=== PATIENT | female | born 1975 | race Caucasian/White ===

== ENCOUNTER 2017-11-14 14:18 | Inpatient (IN) | payer MEDICAID ==
[2017-11-14 15:36] LABS: BASO % 0.4 % (0.0-2.0); EOS # 0.2 K/uL (0.0-0.7); EOS % 1.6 % (0.0-4.0); HEMOGLOBIN 9.5 g/dL (12.0-16.0); LYMPH # 3.7 K/uL (1.0-4.3); LYMPH % 35.8 % (20.0-40.0); MEAN CELL VOLUME 64.9 fl (81.0-99.0); MEAN CORPUSCULAR HEMOGLOBIN 21.3 pg (27.0-31.0); MEAN CORPUSCULAR HGB CONC 32.8 g/dL (33.0-37.0); MEAN PLATELET VOLUME 9.5 fl (7.2-11.7); MONO # 0.7 K/uL (0.0-0.8); NEUT # 5.7 K/uL (1.8-7.0); NEUT % 55.2 % (50.0-75.0); RBC 4.45 Mil/uL (3.80-5.20); RED CELL DISTRIBUTION WIDTH 18.4 % (11.5-14.5); WHITE BLOOD COUNT 10.3 K/uL (4.8-10.8)
[2017-11-14 15:49] LABS: ALB/GLOB RATIO 1.1 (1.0-2.1); ALBUMIN 4.2 g/dL (3.5-5.0); ALT/SGPT 27 U/L (9-52); AST/SGOT 35 U/L (14-36); BLOOD UREA NITROGEN 12 mg/dl (7-17); CALCIUM 9.2 mg/dL (8.4-10.2); GFR NON-AFRICAN AMERICAN > 60
[2017-11-14 15:50] LABS: BARBITURATES, UR NEGATIVE (NEGATIVE); BENZODIAZEPINES, UR NEGATIVE (NEGATIVE); OPIATES, UR NEGATIVE (NEGATIVE); PHENCYCLIDINE, UR NEGATIVE (NEGATIVE)
[2017-11-14 15:52] VITALS: BMI 53.1
--- NOTE | 2017-11-14 15:55 | ED PDOC ---
HPI: Psych/Substance Abuse Time Seen by Provider: 11/14/17 15:52 Chief Complaint (Nursing): Psychiatric Evaluation Chief Complaint (Provider): psychiatric eval ED Caveat: Uncooperative History Per: Patient History/Exam Limitations: clinical condition Onset/Duration Of Symptoms: Unknown Current Symptoms Are (Timing): Still Present Severity: Moderate Associated Symptoms: Paranoia Additional Complaint(s): 42yo female arrives with EMS per report, wandering in rain, speaking nonsensical and then refusing to give name or further history. On my eval, she was more cooperative but remained unwilling to give much history. Admits to prior hospitalization for psychiatric reasons, shes unaware of formal diagnosis and denies taking medications. Denies drug or etoh use. Past Medical History Reviewed: Historical Data, Nursing Documentation, Vital Signs Vital Signs: Last Vital Signs Temp 98.4 F 11/14/17 15:48 Pulse 92 H 11/14/17 15:48 Resp 18 11/14/17 15:48 BP Pulse Ox 98 11/14/17 15:48 - Medical History PMH: Depression, Hypercholesterolemia, Migraine, Schizophrenia Denies: Diabetes, Hepatitis, HIV, HTN, Seizures, Sexually Transmitted Disease - Family History Family History: States: Unknown Family Hx - Home Medications Home Medications: Ambulatory Orders Medication Instructions Recorded Unobtainable 12/27/16 - Allergies Allergies/Adverse Reactions: Allergies Allergy/AdvReac Type Severity Reaction Status Date / Time No Known Allergies Allergy Verified 12/03/13 21:37 Review of Systems Review Of Systems: ROS cannot be obtained secondary to pt's inabilty to answer questions. Physical Exam - Reviewed Nursing Documentation Reviewed: Yes Vital Signs Reviewed: Yes - Physical Exam Appears: Positive for: Non-toxic Head Exam: Positive for: ATRAUMATIC, NORMAL INSPECTION, NORMOCEPHALIC Skin: Positive for: Normal Color, Warm, DRY Eye Exam: Positive for: EOMI, Normal appearance, PERRL ENT: Positive for: Normal ENT Inspection Neck: Positive for: Normal, Painless ROM Cardiovascular/Chest: Positive for: Regular Rate, Rhythm Respiratory: Positive for: CNT, Normal Breath Sounds Pulses-Radial (L): 3+/4+ Pulses-Radial (R): 3+/4+ Gastrointestinal/Abdominal: Positive for: Soft. Negative for: Tenderness Back: Positive for: Normal Inspection Extremity: Positive for: Normal ROM Neurologic/Psych: Positive for: Alert, Mood/Affect (poor insight, poor judgement). Negative for: Motor/Sensory Deficits - Laboratory Results Result Diagrams: 11/14/17 12:30 11/14/17 12:30 - ECG O2 Sat by Pulse Oximetry: 98 Medical Decision Making Medical Decision Making: labs performed on downtime under name Cassidy Chew (initially refused to give name), Utox, CMP, CBC clinically unremarkable Crisis eval- admit 3N for stabilization/ medically stable for 3N admission at this time. Disposition - Disposition
--- NOTE | 2017-11-14 16:13 | RAD ---
Date of service: 11/14/2017 HISTORY: medical clr COMPARISON: 12/03/2013. FINDINGS: LUNGS: The lungs are well inflated and clear. PLEURA: No significant pleural effusion identified, no pneumothorax apparent. CARDIOVASCULAR: Normal. OSSEOUS STRUCTURES: No significant abnormalities. VISUALIZED UPPER ABDOMEN: Normal. OTHER FINDINGS: None. IMPRESSION: No active pulmonary disease.
[2017-11-14] MEDS ORDERED: Magnesium Hydroxide Susp 30 ml UD PO PRN (23:31)
[2017-11-14] MEDS ORDERED: DiphenhydrAMINE 50 mg/ml Inj IM PRN (23:31)
[2017-11-14] MEDS ORDERED: Alum-Mag Hydrox-Simethicone Susp (30 mL) PO PRN (23:31)
--- NOTE | 2017-11-14 23:44 | PCM.BM ---
Treatment Plan Problems - Problems identified on initial assessmt Medication nonadherence Date Initiated: 11/14/17 Time Initiated: 23:43 Assessment reference: NA Status: Active Altered Thought Process Date Initiated: 11/14/17 Time Initiated: 23:44 Assessment reference: NA Status: Active Ineffective coping Date Initiated: 11/14/17 Time Initiated: :44 Date resolved: 11/14/17 Assessment reference: NA Status: Active Treatment assets and liabiliti Patient Assests: ADL independent, physically healthy, negotiates basic needs Patient Liabilities: relationship conflicts, other (poor insight) - Milieu Protocol Maintain good personal hygiene: every shift Encourage regular showers, every s hift Remind patient to perform daily oral care, every shift Assist patient to perform ADL's Conduct patient checks and document Observation sheet: Q15 minutes Maintain personal safety: every shift Educate patient to report safety concerns to staff, every shift Monitor environment for contraband/sharps Medication safety: Monitor for expected outcome, potential side effects: every shift, Assess barriers to learning: every shift, Assess readiness for medication education: every shift
[2017-11-15 04:18] VITALS: O2SAT 97
[2017-11-15 09:53] LABS: T4 6.78 ug/dl (5.5-11.0)
--- NOTE | 2017-11-15 10:33 | CARD ---
APPROVED REPORT Date of service: 11/14/2017 <Conclusion> Normal sinus rhythm Normal ECG
--- NOTE | 2017-11-15 15:23 | CP.PCM.CON ---
History of Present Illness - History of Present Illness History of Present Illness: 42 y/o female with PMH schizoaffective disorder with multiple psychiatric admissions in the past , not compliant with treatment and currently not on any medications admitted to psychiatric unit for management . Medicine consulted . History obtained from patient and chart. per patient she was walking outside in her neighborhood with no shoes on and the security door installer from the school decided to call EMS and she was brought to hospital for crisis eval. per patient she does not have any complaints , she was just trying to get some fresh air because sometimes she get short of breath. She denies any suicidal thoughts or ideation , visual or auditory hallucinations. She states that after her divorce she has been in and out of the psychiatric hospital for more than 4 years, after her mom would call the ambulance on her. She is feeling a little weak, denies any CP, gets SOB sometime while sleeping and wakes up scared . Denies any urinary sx, or changes in bowel movements, cough, fever , chills, nausea or vomiting. Denies any weight loss or gain Allergies ; NKDA PMH: Schizoaffective disorder not on any medications, dyslipidemia Medications; NOne Surgery ; NOne Family history: None Social history ; more than 10 years ago , has 3 children but does not have custody, lives with her mother in [place] , used to work in [employer] but has mot been working for 5 months, denies smoking , ETOH or drug abuse Code status; Full ROS ; 10 point review of system negative except above Review of Systems - Review of Systems All systems: reviewed and no additional remarkable complaints except Past Patient History - Infectious Disease Hx of Infectious Diseases: None - Tetanus Immunizations Tetanus Immunization: Unknown - Past Medical History & Family History Past Medical History?: Yes Past Family History: Reviewed and not pertinent - Past Social History Smoking Status: Light Smoker < 10 Cigarettes Daily Chewing Tobacco Use: No Cigar Use: No Alcohol: None Drugs: Denies Home Situation {Lives}: With Family - CARDIAC Hx Hypercholesterolemia: Yes Hx Hypertension: No - PULMONARY Hx Respiratory Disorders: No Hx Tuberculosis: No - NEUROLOGICAL Hx Migraine: Yes Hx Seizures: No - HEENT Hx HEENT Problems: No - RENAL Hx Chronic Kidney Disease: No - ENDOCRINE/METABOLIC Hx Endocrine Disorders: No - HEMATOLOGICAL/ONCOLOGICAL Hx Blood Disorders: No Hx Human Immunodeficiency Virus (HIV): No - INTEGUMENTARY Hx Dermatological Problems: No - MUSCULOSKELETAL/RHEUMATOLOGICAL Hx Musculoskeletal Disorders: No - GASTROINTESTINAL Hx Gastrointestinal Disorders: No - GENITOURINARY/GYNECOLOGICAL Hx Genitourinary Disorders: No Hx Sexually Transmitted Disorders: No - PSYCHIATRIC Hx Substance Use: No - SURGICAL HISTORY Hx Surgeries: No - ANESTHESIA Hx Anesthesia: No Meds Allergies/Adverse Reactions: Allergies Allergy/AdvReac Type Severity Reaction Status Date / Time No Known Allergies Allergy Verified 12/03/13 21:37 - Medications Medications: Current Medications Acetaminophen (Tylenol 325mg Tab) 650 mg PO Q4 PRN PRN Reason: Pain, moderate (4-7) Al Hydrox/Mg Hydrox/Simethicone (Maalox Plus 30 Ml) 30 ml PO Q4 PRN PRN Reason: Dyspepsia Diphenhydramine HCl (Benadryl) 50 mg IM Q6 PRN PRN Reason: Extrapyramidal S/S Unable PO Diphenhydramine HCl (Benadryl) 50 mg PO Q6 PRN PRN Reason: Extrapyramidal Symptoms Haloperidol (Haldol) 5 mg PO Q4 PRN PRN Reason: Agitation Haloperidol Lactate (Haldol) 5 mg IM Q4 PRN PRN Reason: Agitation, Unable to Take PO Lorazepam (Ativan) 2 mg IM Q4 PRN PRN Reason: Anxiety/Agitation,Unable PO Lorazepam (Ativan) 1 mg PO Q6 PRN PRN Reason: Anxiety/Agitation Magnesium Hydroxide (Milk Of Magnesia) 30 ml PO HS PRN PRN Reason: Constipation Physical Exam - Constitutional Appears: Non-toxic, No Acute Distress - Head Exam Head Exam: ATRAUMATIC, NORMAL INSPECTION, NORMOCEPHALIC - Eye Exam Eye Exam: EOMI, Normal appearance, PERRL Pupil Exam: NORMAL ACCOMODATION - ENT Exam ENT Exam: Mucous Membranes Moist, Normal Exam - Neck Exam Neck exam: Positive for: Full Rom, Normal Inspection - Respiratory Exam Respiratory Exam: Clear to Auscultation Bilateral, NORMAL BREATHING PATTERN. absent: Rales, Rhonchi, Wheezes - Cardiovascular Exam Cardiovascular Exam: REGULAR RHYTHM, RRR, +S1, +S2. absent: JVD - GI/Abdominal Exam GI & Abdominal Exam: Normal Bowel Sounds, Soft. absent: Distended, Guarding, Rebound, Tenderness - Rectal Exam Rectal Exam: Deferred - Extremities Exam Extremities exam: Positive for: normal capillary refill, normal inspection, pedal pulses present - Back Exam Back exam: NORMAL INSPECTION - Neurological Exam Neurological exam: Alert, CN II-XII Intact, Normal Gait - Psychiatric Exam Psychiatric exam: Normal Affect, Normal Mood - Skin Skin Exam: Dry, Intact, Normal Color, Warm Results - Vital Signs Recent Vital Signs: Last Vital Signs Temp 99.5 F 11/15/17 09:17 Pulse 116 H 11/15/17 09:17 Resp 20 11/15/17 09:17 BP 149/82 11/15/17 09:17 Pulse Ox 97 11/14/17 22:55 - Labs Result Diagrams: 11/14/17 12:30 11/14/17 12:30 Labs: Laboratory Results - last 24 hr 11/14/17 11/14/17 11/14/17 12:30 12:30 12:30 WBC 10.3 RBC 4.45 Hgb 9.5 L Hct 28.9 L MCV 64.9 L MCH 21.3 L MCHC 32.8 L RDW 18.4 H Plt Count 296 MPV 9.5 Neut % (Auto) 55.2 Lymph % (Auto) 35.8 [place] % (Auto) 7.0 Eos % (Auto) 1.6 Baso % (Auto) 0.4 Neut # (Auto) 5.7 Lymph # (Auto) 3.7 [place] # (Auto) 0.7 Eos # (Auto) 0.2 Baso # (Auto) 0.0 Sodium 138 Potassium 3.9 Chloride 108 H Carbon Dioxide 24 Anion Gap 10 BUN 12 Creatinine 0.5 L Est GFR ( Amer) > 60 Est GFR (Non-Af Amer) > 60 Random Glucose 100 Hemoglobin A1c Calcium 9.2 Total Bilirubin 0.2 AST 35 ALT 27 Alkaline Phosphatase 53 Total Protein 8.0 Albumin 4.2 Globulin 3.8 Albumin/Globulin Ratio 1.1 Triglycerides Cholesterol LDL Cholesterol Direct HDL Cholesterol Thyroxine (T4) TSH 3rd Generation Urine Opiates Screen Negative Urine Methadone Screen Negative Ur Barbiturates Screen Negative Ur Phencyclidine Scrn Negative Ur Amphetamines Screen Negative U Benzodiazepines Scrn Negative U Oth Cocaine Metabols Negative U Cannabinoids Screen Negative Alcohol, Quantitative < 10 11/15/17 11/15/17 09:09 09:09 WBC RBC Hgb Hct MCV MCH MCHC RDW Plt Count MPV Neut % (Auto) Lymph % (Auto) [place] % (Auto) Eos % (Auto) Baso % (Auto) Neut # (Auto) Lymph # (Auto) [place] # (Auto) Eos # (Auto) Baso # (Auto) Sodium Potassium Chloride Carbon Dioxide Anion Gap BUN Creatinine Est GFR ( Amer) Est GFR (Non-Af Amer) Random Glucose Hemoglobin A1c 5.0 Calcium Total Bilirubin AST ALT Alkaline Phosphatase Total Protein Albumin Globulin Albumin/Globulin Ratio Triglycerides 66 Cholesterol 201 H LDL Cholesterol Direct 96 HDL Cholesterol 71 H Thyroxine (T4) 6.78 TSH 3rd Generation 0.93 Urine Opiates Screen Urine Methadone Screen Ur Barbiturates Screen Ur Phencyclidine Scrn Ur Amphetamines Screen U Benzodiazepines Scrn U Oth Cocaine Metabols U Cannabinoids Screen Alcohol, Quantitative Assessment & Plan - Assessment and Plan (Free Text) Assessment: 42 y/o female with PMH schizoaffective disorder with multiple psychiatric admissions in the past , not compliant with treatment and currently not on any medications admitted to psychiatric unit for management. 1. SChizoaffective disorder Management as per psych TSH 0.93 CHeck UA 2. Anemia unclear etiology Check anemia work up
--- NOTE | 2017-11-15 18:47 | PCM.PSYCH ---
Initial Psychiatric Evaluation - Initial Psychiatric Evaluation Type of Admission: Voluntary Legal Status: Capacity Chief Complaint (in patient's own words): I do not need medications History of Present Illness and Precipitating Events: pt is 42ys old female with previous psychiatric diagnosis of schizophrenia, non compliant with medications or follow up, brought to ER by police due to disorganized behavior, pt on evaluation reported she has been depressed for loosing her job three months ago, noted to be angry and irritable, pt has tangential thought process, with thought blocking, no insight into illness indicating she does not need medications, refusing that the team would call her mother for collateral information, appears internally preoccupied, denied command hallucinations, denied suicidal or homicidal ideation, denied barker bstance use Current Medications: Active Medications Generic Name Dose Route Start Last Admin Trade Name Freq PRN Reason Stop Dose Admin Acetaminophen 650 mg 11/14/17 23:31 Tylenol 325mg Tab PO Q4 PRN Pain, moderate (4-7) Al Hydrox/Mg Hydrox/Simethicone 30 ml 11/14/17 23:31 Maalox Plus 30 Ml PO Q4 PRN Dyspepsia Benztropine Mesylate 1 mg 11/15/17 22:00 Cogentin PO HS CARINE Diphenhydramine HCl 50 mg 11/14/17 23:31 Benadryl IM Q6 PRN Extrapyramidal S/S Unable PO Diphenhydramine HCl 50 mg 11/14/17 23:31 Benadryl PO Q6 PRN Extrapyramidal Symptoms Haloperidol 5 mg 11/14/17 23:31 Haldol PO Q4 PRN Agitation Haloperidol Lactate 5 mg 11/14/17 23:31 Haldol IM Q4 PRN Agitation, Unable to Take PO Lorazepam 2 mg 11/14/17 23:31 Ativan IM Q4 PRN Anxiety/Agitation,Unable PO Lorazepam 1 mg 11/14/17 23:31 Ativan PO Q6 PRN Anxiety/Agitation Magnesium Hydroxide 30 ml 11/14/17 23:31 Milk Of Magnesia PO HS PRN Constipation Risperidone 2 mg 11/15/17 22:00 Risperdal M-Tab PO HS CARINE Past Psychiatric History - Past Psychiatric History Explanation of prior treatment: hx of one previous hospitalization, non compliant with treatment or follow up History of ETOH/Drug Use: denied Pertinent Medical Hx (Current Medical&Sleep Prob, Allergies): Allergies Allergy/AdvReac Type Severity Reaction Status Date / Time No Known Allergies Allergy Verified 12/03/13 21:37 No Known Home Med 11/14/17 Mental Status Examination - Personal Presentation Personal Presentation: Looks stated age - Affect Affect: Constricted, Other Additional comments: angry itrritable - Motor Activity Motor Activity: Psychomotor Agitation - Reliability in Providing Information Reliability in Providing Information: Poor, due to alteration in thoughts, Poor, due to altered mood - Speech Speech: Tangential - Mood Mood: Anxious - Formal Thought Process Formal Thought Process: Paranoia, Circumstantial - Obsessions/Compulsions Obsessions: No Compulsions: No - Cognitive Functions Orientation: Person, Place Abstract Thinking: [place] Judgement: Imparied, as evidence by: Poor judgement, Imparied, as evidence by: Lack of insight into illness - Risk Risk: Diminished functioning - Strength & Assets Inventory Strength & Assets Inventory: Family support - Limitations Additional comments: poor compliance DSM 5 DX - DSM 5 DSM 5 Diagnosis: schizophrenia disorganized type - Recommended/Plan of Treatment Treatment Recommendations and Plan of Treatment: risperdal 2mg qhs cogentin 1mg qhs group and supportive therapy encourage medication compliance
[2017-11-15] MEDS: Risperidone M TAB 2 MG PO SCH (21:27)
[2017-11-16] MEDS: Risperidone M TAB 2 MG PO SCH (21:29)
[2017-11-17 09:32] VITALS: RESP 18
[2017-11-17 16:57] VITALS: PULSE 79
--- NOTE | 2017-11-17 18:11 | PCM.PYCHPN ---
Psychiatric Progress Note - Psychiatric Progress Note Patient seen today, length of contact: chart reviewed case discussed with team Patient Chief Complaint: was home feeling nervous, thinking about people looking at her, now feeling a little calmer taking rx, denies side effects, seen about unit, c Problems Identified/Issues Discussed: alteration in cognition alteration in coping Medical Problems: per chart Diagnostic Results: per psychiatry per medicine per nursing per social work per recreational therapy DSM 5 Symptoms Update: somewhat improved mood, ? paranoia Medication Change: Yes (increase rispderdal to 3mg po hs) Medical Record Reviewed: Yes Consults ordered or reviewed: pt seen by hospitalist Mental Status Examination - Cognitive Function Orientation: Person, Place, Situation Attention: Poor Concentration: Poor Association: Loose Fund of Knowledge: Poor Decription of patient's judgement and insights: impaired - Mood Mood: Anxious - Affect Affect: Constricted, Other - Formal Thought Process Formal Thought Process: Paranoia, Circumstantial - Homicidal Ideation Homicidal Ideation: No Goal/Treatment Plan - Goal/Treatment Plan Progress Toward Problem(s) and Goals/Treatment Plan: inpt milieu vital signs and clinical observation per protocol and per clinical status given paranoia, isolation will increase risperdal to 3mg po hs team may consider discharge planning in progress Estimated Date of D/C: 11/24/17 - Smoking Cessation Smoking Cessation Initiated: No Reason for not providing: pt defers
--- NOTE | 2017-11-18 08:29 | PCM.PYCHPN ---
Psychiatric Progress Note - Psychiatric Progress Note Patient seen today, length of contact: chart reviewed case discussed with team Patient Chief Complaint: Pt who has h/o schizophrenia and admitted because of disorganized behavior and started on risperdal increased to 3 mg hs and has improved but still with poor insight and flat affect.pt has requested d/c and put in 48 hr letter which tiday .pt denies suicidal ideation and no overt psychosis and has promised to make follow up appointments .pt is explained all the rusks of Against medical advice d/c an pt still wants to sign out AMA . Medication Change: Yes (increase rispderdal to 3mg po hs) Medical Record Reviewed: Yes Mental Status Examination - Cognitive Function Orientation: Person, Place, Situation Attention: Poor Concentration: Poor Association: WNL Fund of Knowledge: WNL - Mood Mood: Anxious - Affect Affect: Constricted, Other - Formal Thought Process Formal Thought Process: Other - Suicidal Ideation Suicidal Ideation: No - Homicidal Ideation Homicidal Ideation: No Goal/Treatment Plan - Goal/Treatment Plan Progress Toward Problem(s) and Goals/Treatment Plan: pt is d/c against medical advice as pt is not committable and put in 48 hour letter .pt is supported by mother and will continue risperdal and cogentin and scripts provided .pt is not suicidal and not homicidal and stable for d/c today .no overt psychosis. Estimated Date of D/C: 11/24/17
[2017-11-18 09:12] VITALS: BP 111/77; TEMP 97.1
== END 2017-11-18 12:30 | disposition left against medical advice (07) | DRG 885 ==
LOC: H.ER 14:18 → H.ERHOLD 15:52 → H.PSYCH 23:17
PROVIDERS: ADMIT Psychiatry & Neurology Psychiatry; ATTEND Psychiatry & Neurology Psychiatry
PROC: GZHZZZZ Group Psychotherapy (ICD-10-PCS; principal; 2017-11-15)
PROC: GZ51ZZZ Individual Psychotherapy, Behavioral (ICD-10-PCS; 2017-11-15)
DX: F25.9 Schizoaffective disorder, unspecified (principal); E78.00 Pure hypercholesterolemia, unspecified; F32.9 Major depressive disorder, single episode, unspecified; G43.909 Migraine, unspecified, not intractable, without status migrainosus; D64.9 Anemia, unspecified